=== PATIENT | male | born 1990 | race American Indian/Alaskan Native ===

== ENCOUNTER 2022-07-09 21:25 | Emergency (ER) | payer BC, OTHER ==
[2022-07-09 22:25] LABS: CORONAVIRUS COVID-19 NAA NEGATIVE (NEGATIVE); RESPIRATORY SYNCYTIAL VIR NAA NEGATIVE (NEGATIVE)
[2022-07-09] MEDS ORDERED: Acetaminophen 500 MG Tab PO ONE (23:32)
[2022-07-09] MEDS ORDERED: Ondansetron 4 MG Tab.DIS PO ONE (23:32)
[2022-07-10 00:06] LABS: ANION GAP 9.5 mEq/L (7-13)
[2022-07-10] MEDS ORDERED: Ketorolac 10 MG Tab PO ONE (01:16)
[2022-07-10] MEDS ORDERED: diphenhydrAMINE 50 MG Cap PO ONE (01:17)
== END 2022-07-10 03:27 | disposition home or self-care (01) ==
LOC: DL.ED 21:25
DX: R51.9 Headache, unspecified (principal); I10 Essential (primary) hypertension; Z20.822 Contact with and (suspected) exposure to COVID-19
CPT/HCPCS: 0241U; 36415; 71045; 80053; 81003; 83735; 85025; 99284; 99285; A9270; Q0163